=== PATIENT | female | born 1970 | race Two or more races ===

== ENCOUNTER 2020-08-18 10:20 | Emergency (ER) | payer OTHER ==
[~2020-08-18] VITALS: Ht 175.3 cm; Wt 68.0 kg
== END 2020-08-18 16:09 | disposition home or self-care (01) ==
LOC: ER 10:20
DX: N39.0 Urinary tract infection, site not specified (principal); R31.29 Other microscopic hematuria; Z03.818 Encounter for observation for suspected exposure to other biological agents ruled out; R50.9 Fever, unspecified; R53.81 Other malaise

== ENCOUNTER 2024-06-06 12:47 | Emergency (ER) | payer OTHER ==
[~2024-06-06] VITALS: Ht 165.1 cm; Wt 59.0 kg
[2024-06-06] MEDS ORDERED: IPRATROPIUM BROMIDE 0.5 MG/2.5 ML AMPUL.NEB IH STA (14:44)
[2024-06-06] MEDS ORDERED: BUDESONIDE 0.5 MG/2 ML AMPUL.NEB IH STA (14:44)
[2024-06-06] MEDS ORDERED: GUAIFENESIN 200 MG/10 ML BLIST.PACK PO STA (14:44)
[2024-06-06] MEDS ORDERED: GUAIFENESIN 200 MG/10 ML BLIST.PACK PO ONE (14:53)
[2024-06-06 15:10] LABS: HEMOGLOBIN 10.8 g/dL (12.0-15.00); MEAN CELL VOLUME 79.4 fL (80.00-100.00); MEAN CORPUSCULAR HEMOGLOBIN 26.1 pg (27.00-32.0); MEAN CORPUSCULAR HGB CONC 32.9 g/dl (32.0-36.0); PLATELET COUNT 229 K/uL (150-450); RED BLOOD COUNT 4.15 M/uL (4.00-6.00); RED CELL DISTRIBUTION WIDTH 15.3 % (11.5-14.5)
== END 2024-06-06 14:50 | disposition home or self-care (01) ==
LOC: ER 12:50
PROVIDERS: General Practice
DX: R53.81 Other malaise (principal); R05.9 Cough, unspecified; Z20.822 Contact with and (suspected) exposure to COVID-19; Z88.0 Allergy status to penicillin